=== PATIENT | male | born 1975 | race African-American/Black ===

== ENCOUNTER 2020-02-12 02:34 | Emergency (ER) | payer SELFPAY ==
[~2020-02-12] VITALS: Ht 170.2 cm; Wt 72.0 kg
[2020-02-12] MEDS ORDERED: ONDANSETRON HCL 4MG/2ML INJ IV STA (03:23)
[2020-02-12] MEDS ORDERED: MORPHINE SULFATE 4 MG/ML CPJ (NOT FOR IM USE) IV STA (03:23)
[2020-02-12] MEDS ORDERED: CEFAZOLIN 1000MG PREMIX 50 ML IV ONE (03:30)
[2020-02-12] MEDS ORDERED: SODIUM CHLORIDE 0.9% 1,000 ML IV ONE (03:30)
[2020-02-12] MEDS ORDERED: ONDANSETRON HCL 4MG/2ML INJ IV SCH (03:45)
[2020-02-12] MEDS ORDERED: MORPHINE SULFATE 4 MG/ML CPJ (NOT FOR IM USE) IV SCH (03:45)
[2020-02-12 03:50] LABS: BASOPHILS % 0.2 % (0.0-2.0); EOSINOPHILS % 0.5 % (0.0-5.0); HEMATOCRIT. 37.4 % (42.0-52.0); HEMOGLOBIN. 12.2 g/dL (14.0-18.0); LYMPHOCYTES % 13.6 % (20.0-50.0); MEAN CORPUSCULAR VOLUME 83.1 fL (80.0-94.0); MEAN PLATELET VOLUME 7.8 fl (7.4-10.4); MONOCYTES % 8.1 % (2.0-8.0); NEUTROPHILS % 77.6 % (40.0-76.0); PLATELET 197 x1000/uL (130-400); RED CELL DISTRIBUTION WIDTH 13.3 % (11.6-14.6)
[2020-02-12 03:55] LABS: CHLORIDE 104 mEq/L (98-107)
[2020-02-12] MEDS ORDERED: PROPOFOL 200MG/20ML VIAL IV ONE ×2 (04:45→07:45)
[2020-02-12] MEDS ORDERED: MORPHINE SULFATE 10 MG/ML CPJ IV SCH (05:00)
[2020-02-12] MEDS ORDERED: FENTANYL CITRATE/PF 50MCG/ML 2ML VIAL IV ONE ×2 (07:00→11:00)
[2020-02-12] MEDS ORDERED: ONDANSETRON HCL 4MG/2ML INJ IV ONE ×2 (07:00→07:45)
[2020-02-12] MEDS ORDERED: KETAMINE HCL 50 MG/ML 10ML IV ONE (07:45)
[2020-02-12] MEDS ORDERED: TETANUS, DIPHTHERIA, PERTUSSIS VAC/PF 0.5ML (>7YR OLD) IM ONE (09:00)
[2020-02-12 13:05] VITALS: BP 128/80
== END 2020-02-12 13:36 | disposition short-term general hospital (02) ==
LOC: ER 02:34
DX: S82.832B Other fracture of upper and lower end of left fibula, initial encounter for open fracture type I or II (principal); S82.392B Other fracture of lower end of left tibia, initial encounter for open fracture type I or II; M54.5 Low back pain; F15.10 Other stimulant abuse, uncomplicated; W17.89XA Other fall from one level to another, initial encounter; Y93.89 Activity, other specified; Y92.89 Other specified places as the place of occurrence of the external cause
CPT/HCPCS: 27788; 36415; 70450; 72131; 72170; 73551; 73590; 73700; 80053; 85025; 86850; 86900; 86901; 90471; 90715; 96361; 96365; 96375; 96376; 99152; 99285; J0690; J2270; J2405; J2704; J3010; J3490; J7030

== ENCOUNTER 2024-09-24 07:15 | Emergency (ER) | payer MEDICAID ==
[~2024-09-24] VITALS: Ht 172.7 cm; Wt 70.0 kg
[2024-09-24 07:19] VITALS: O2SAT 99
[2024-09-24] MEDS ORDERED: OFLO5DRO4 LEFT EAR (08:52)
[2024-09-24 09:03] VITALS: BP 118/76; PULSE 82; RESP 16; TEMP 36.4; O2SAT 100
== END 2024-09-24 09:47 | disposition home or self-care (01) ==
LOC: ER 07:25
DX: T16.2XXA Foreign body in left ear, initial encounter (principal); F19.90 Other psychoactive substance use, unspecified, uncomplicated; W44.F9XA Other object of natural or organic material, entering into or through a natural orifice, initial encounter; Y93.89 Activity, other specified; Y92.89 Other specified places as the place of occurrence of the external cause; Y99.8 Other external cause status
CPT/HCPCS: 69200; 99284